=== PATIENT | male | born 1955 | race Caucasian/White ===

== ENCOUNTER 2021-01-16 09:11 | Inpatient (IN) | payer SELFPAY ==
[~2021-01-16] VITALS: Ht 185.4 cm; Wt 76.7 kg
[2021-01-16 09:12] VITALS: BP 109/76
[2021-01-16] MEDS ORDERED: CLINDAMYCIN IVPB 600MG/50ML 50 ML IV SCH (12:30)
[2021-01-16] MEDS ORDERED: ONDANSETRON 4MG INJ IVP SCH (12:30)
[2021-01-16] MEDS ORDERED: ONDANSETRON 4MG INJ IVP ONE (12:30)
[2021-01-16] MEDS ORDERED: MORPHINE 5 MG/ML VIAL (5MG OR GREATER DOSE) IV SCH (12:30)
[2021-01-16 13:01] LABS: BASOPHILS % (AUTO) 0.4 % (0.0-5.0); EOSINOPHILS % (AUTO) 0.2 % (0.0-8.0); HEMATOCRIT 33.8 % (42-54); LYMPHOCYTES % (AUTO) 19.1 % (21.0-51.0); MEAN CORPUSCULAR HEMOGLOBIN 23.8 pg (27.0-33.0); MEAN CORPUSCULAR HGB CONC 30.8 g/dL (32.0-36.0); MEAN CORPUSCULAR VOLUME 77.3 fL (79-99); MONOCYTES % (AUTO) 6.6 % (3.0-13.0); NEUTROPHILS % (AUTO) 73.4 % (40.0-77.0); PLATELET COUNT (AUTO) 380 K/uL (130-400); RED BLOOD CELL COUNT(AUTO) 4.37 MIL/uL (4.50-6.20); RED CELL DISTRIBUTION WIDTH 17.4 % (11.0-15.5); WHITE BLOOD COUNT (AUTO) 12.5 K/uL (4.8-10.8)
[2021-01-16 13:07] LABS: POTASSIUM 3.4 mmol/L (3.5-5.1)
[2021-01-16 13:08] VITALS: BP 115/65
[2021-01-16 13:12] LABS: ALBUMIN 2.1 g/dL (3.5-5.0); BILIRUBIN,TOTAL 0.4 mg/dL (0.2-1.0); CRP QUANTITATIVE 81.6 mg/L (0.00-9.0); TOTAL PROTEIN, SERUM 9.7 g/dL (6.0-8.3)
[2021-01-16 14:49] VITALS: BP 116/68
[2021-01-16] MEDS ORDERED: VANCOMYCIN PROTOCOL PER PHARMACY IV SCH (15:00)
[2021-01-16] MEDS ORDERED: ACETAMINOPHEN 325 MG TAB PO PRN (15:00)
[2021-01-16] MEDS ORDERED: POTASSIUM CHLORIDE 10% ELIXIR 20 MEQ/15 ML UDCUP PO PRN (15:30)
[2021-01-16] MEDS ORDERED: POTASSIUM CHLORIDE 20MEQ/100ML 100 ML IV PRN (15:30)
[2021-01-16] MEDS ORDERED: LIDOCAINE HCL-MPF 1% 2ML VIAL IV PRN (15:30)
[2021-01-16 15:53] LABS: HEMOGLOBIN A1C 5.2 % (4.0-6.0)
[2021-01-16] MEDS: 0.9%NACL 1000ML 1,000 ML IV SCH (15:55)
[2021-01-16] MEDS ORDERED: VANCOMYCIN 1.5GM/NS 250ML IV ONE ×2 (16:00)
[2021-01-16 16:10] LABS: TROPONIN I 0.09 ng/mL (0.00-0.06)
[2021-01-16 16:21] VITALS: BP 127/64
[2021-01-16] MEDS ORDERED: RENAL DOSE IV SCH ×2 (20:00)
[2021-01-16 20:30] VITALS: BP 132/69
[2021-01-16] MEDS ORDERED: ZOSYN 3.375GM+NS 50ML 50 ML IV SCH (21:00)
[2021-01-16] MEDS: FAMOTIDINE 20MG TAB PO SCH (21:24)
[2021-01-16] MEDS: ZOSYN 3.375GM +NS 50ML IV SCH (21:24)
[2021-01-16] MEDS: 0.9%NACL 50ML 50 ML IV SCH (21:24)
[2021-01-17] VITALS (31 sets, daily range): BP systolic 105–145; BP diastolic 53–74
[2021-01-17 00:17] LABS: TROPONIN I 0.09 ng/mL (0.00-0.06)
[2021-01-17] MEDS: 0.9% NACL 250ML 250 ML IV SCH ×3 (01:16→21:48)
[2021-01-17] MEDS: VANCOMYCIN 750MG VIAL IVPB SCH ×3 (01:16→21:47)
[2021-01-17] MEDS: ACETAMINOPHEN WITH CODEINE 1 TAB TAB PO PRN (02:12)
[2021-01-17] MEDS: 0.9%NACL 1000ML 1,000 ML IV SCH ×3 (04:20→18:29)
[2021-01-17] MEDS: 0.9%NACL 50ML 50 ML IV SCH ×3 (04:46→21:47)
[2021-01-17] MEDS: ZOSYN 3.375GM +NS 50ML IV SCH ×3 (04:46→21:48)
[2021-01-17 05:03] LABS: BASOPHILS % (AUTO) 0.3 % (0.0-5.0); EOSINOPHILS % (AUTO) 0.4 % (0.0-8.0); HEMATOCRIT 30.6 % (42-54); LYMPHOCYTES % (AUTO) 16.2 % (21.0-51.0); MEAN CORPUSCULAR HEMOGLOBIN 23.4 pg (27.0-33.0); MEAN CORPUSCULAR HGB CONC 30.1 g/dL (32.0-36.0); MEAN CORPUSCULAR VOLUME 77.9 fL (79-99); MONOCYTES % (AUTO) 6.4 % (3.0-13.0); NEUTROPHILS % (AUTO) 76.3 % (40.0-77.0); PLATELET COUNT (AUTO) 340 K/uL (130-400); RED BLOOD CELL COUNT(AUTO) 3.93 MIL/uL (4.50-6.20); RED CELL DISTRIBUTION WIDTH 17.4 % (11.0-15.5); WHITE BLOOD COUNT (AUTO) 13.3 K/uL (4.8-10.8)
[2021-01-17 05:13] LABS: ALBUMIN 1.7 g/dL (3.5-5.0); BILIRUBIN,TOTAL 0.2 mg/dL (0.2-1.0); POTASSIUM 3.6 mmol/L (3.5-5.1); TOTAL PROTEIN, SERUM 8.1 g/dL (6.0-8.3)
[2021-01-17 05:23] LABS: CRP QUANTITATIVE 116.4 mg/L (0.00-9.0)
[2021-01-17] MEDS ORDERED: OMEP40CA21 PO (07:52)
[2021-01-17] MEDS ORDERED: LEVO50CA4 PO (07:52)
[2021-01-17] MEDS ORDERED: GLIM2TAB30 PO (07:52)
[2021-01-17] MEDS: FAMOTIDINE 20MG TAB PO SCH ×2 (09:14→21:46)
[2021-01-17] MEDS: FLUCONAZOLE 200 MG/NS 100 ML 100 ML IV SCH (11:24)
[2021-01-17] MEDS ORDERED: LIDOCAINE PF 100MG/5ML (2%) SYRINGE 5ML ONE (17:15)
[2021-01-17] MEDS ORDERED: DEXAMETHASONE SOD PHOSPHATE 10MG/ML 1ML VIAL ONE (17:15)
[2021-01-17] MEDS ORDERED: MIDAZOLAM HCL 1 MG/ML 2ML VIAL ONE (17:16)
[2021-01-17] MEDS ORDERED: FENTANYL CITRATE PF 50 MCG/1 ML 2ML VIAL ONE ×3 (17:16→17:50)
[2021-01-17] MEDS ORDERED: ONDANSETRON 4MG INJ ONE (17:16)
[2021-01-17] MEDS ORDERED: PROPOFOL 10 MG/ML 20ML VIAL IV ONE (17:16)
[2021-01-17] MEDS ORDERED: SUCCINYLCHOLINE CHLORIDE 20 MG/ML 10 ML VIAL ONE (17:19)
[2021-01-17] MEDS ORDERED: MEPERIDINE-PF 25 MG/ML SYG ONE ×2 (17:19→19:01)
[2021-01-17] MEDS ORDERED: CEFAZOLIN SODIUM 1 GM VIAL ONE (17:58)
[2021-01-17] MEDS: KCL 20 MEQ ERTAB PO PRN (21:47)
[2021-01-18] MEDS: KCL 20 MEQ ERTAB PO PRN (00:09)
[2021-01-18] MEDS: 0.9% NACL 250ML 250 ML IV SCH ×4 (00:09→23:27)
[2021-01-18] MEDS: VANCOMYCIN 750MG VIAL IVPB SCH ×4 (00:10→23:28)
[2021-01-18] MEDS: ZOSYN 3.375GM +NS 50ML IV SCH ×3 (03:48→19:39)
[2021-01-18] MEDS: 0.9%NACL 50ML 50 ML IV SCH ×3 (03:48→19:39)
[2021-01-18 04:12] VITALS: BP 119/73
[2021-01-18 05:30] LABS: BASOPHILS % (AUTO) 0.1 % (0.0-5.0); HEMATOCRIT 29.4 % (42-54); LYMPHOCYTES % (AUTO) 5.9 % (21.0-51.0); MEAN CORPUSCULAR HEMOGLOBIN 23.8 pg (27.0-33.0); MEAN CORPUSCULAR HGB CONC 30.3 g/dL (32.0-36.0); MEAN CORPUSCULAR VOLUME 78.6 fL (79-99); MONOCYTES % (AUTO) 0.5 % (3.0-13.0); PLATELET COUNT (AUTO) 306 K/uL (130-400); RED BLOOD CELL COUNT(AUTO) 3.74 MIL/uL (4.50-6.20); RED CELL DISTRIBUTION WIDTH 17.5 % (11.0-15.5); WHITE BLOOD COUNT (AUTO) 18.9 K/uL (4.8-10.8)
[2021-01-18] MEDS: 0.9%NACL 1000ML 1,000 ML IV SCH ×2 (05:49→20:20)
[2021-01-18 05:55] LABS: POTASSIUM 4.1 mmol/L (3.5-5.1)
[2021-01-18 08:00] VITALS: BP 108/69
[2021-01-18] MEDS: FAMOTIDINE 20MG TAB PO SCH ×2 (09:11→19:54)
[2021-01-18] MEDS: FLUCONAZOLE 200 MG/NS 100 ML 100 ML IV SCH (09:11)
[2021-01-18] MEDS: ACETAMINOPHEN WITH CODEINE 1 TAB TAB PO PRN ×2 (09:43→21:57)
[2021-01-18 11:34] VITALS: BP 121/67
[2021-01-18] MEDS: BUPROPION HCL 150 MG TABLET.SA PO SCH ×3 (11:57→19:40)
[2021-01-18] MEDS: NICOTINE 14 MG/ 24 HR PATCH TD SCH (11:57)
[2021-01-18 16:00] VITALS: BP 110/62
[2021-01-18 19:41] VITALS: BP 118/67
[2021-01-18 23:35] VITALS: BP 120/65
[2021-01-19] MEDS: 0.9%NACL 50ML 50 ML IV SCH ×2 (03:28→12:23)
[2021-01-19] MEDS: ZOSYN 3.375GM +NS 50ML IV SCH ×2 (03:28→12:23)
[2021-01-19 04:15] VITALS: BP 112/64
[2021-01-19] MEDS: ACETAMINOPHEN WITH CODEINE 1 TAB TAB PO PRN ×3 (04:45→18:59)
[2021-01-19 08:12] VITALS: BP 123/64
[2021-01-19] MEDS: FLUCONAZOLE 200 MG/NS 100 ML 100 ML IV SCH (08:58)
[2021-01-19] MEDS: BUPROPION HCL 150 MG TABLET.SA PO SCH ×3 (08:59→20:34)
[2021-01-19] MEDS: FAMOTIDINE 20MG TAB PO SCH ×2 (08:59→20:34)
[2021-01-19] MEDS: NICOTINE 14 MG/ 24 HR PATCH TD SCH (08:59)
[2021-01-19] MEDS: 0.9% NACL 250ML 250 ML IV SCH (09:11)
[2021-01-19] MEDS: VANCOMYCIN 750MG VIAL IVPB SCH (09:14)
[2021-01-19] MEDS: 0.9%NACL 1000ML 1,000 ML IV SCH ×2 (09:14→20:34)
[2021-01-19 10:52] VITALS: BP 126/66
[2021-01-19] MEDS: OXYCODONE/ACETAMIN 5/325MG TAB PO PRN ×2 (11:26→23:00)
[2021-01-19] MEDS: CEFUROXIME AXETIL 250 MG TABLET PO SCH (13:47)
[2021-01-19] MEDS: CLINDAMYCIN 150 MG CAP PO SCH ×2 (13:47→20:34)
[2021-01-19 16:29] VITALS: BP 140/77
[2021-01-19 20:00] VITALS: BP 147/77
[2021-01-20] VITALS: BP 135/61
[2021-01-20] MEDS: CEFUROXIME AXETIL 250 MG TABLET PO SCH ×2 (01:38→14:29)
[2021-01-20 04:00] VITALS: BP_SYST 112; BP_SYST 124; BP_DIAS 48; BP_DIAS 65
[2021-01-20] MEDS: CLINDAMYCIN 150 MG CAP PO SCH ×3 (06:52→20:50)
[2021-01-20] MEDS: OXYCODONE/ACETAMIN 5/325MG TAB PO PRN (06:57)
[2021-01-20 07:26] LABS: CREATININE 1.1 mg/dL (0.5-1.5); POTASSIUM 3.5 mmol/L (3.5-5.1)
[2021-01-20 07:36] VITALS: BP 131/66
[2021-01-20 07:43] LABS: BASOPHILS % (AUTO) 0.4 % (0.0-5.0); HEMATOCRIT 23.8 % (42-54); LYMPHOCYTES % (AUTO) 38.5 % (21.0-51.0); MEAN CORPUSCULAR HGB CONC 29.4 g/dL (32.0-36.0); MONOCYTES % (AUTO) 7.9 % (3.0-13.0); NEUTROPHILS % (AUTO) 51.9 % (40.0-77.0); PLATELET COUNT (AUTO) 254 K/uL (130-400); RED BLOOD CELL COUNT(AUTO) 3.05 MIL/uL (4.50-6.20); RED CELL DISTRIBUTION WIDTH 17.5 % (11.0-15.5); WHITE BLOOD COUNT (AUTO) 6.7 K/uL (4.8-10.8)
[2021-01-20] MEDS: BUPROPION HCL 150 MG TABLET.SA PO SCH ×3 (09:00→20:53)
[2021-01-20] MEDS: FAMOTIDINE 20MG TAB PO SCH ×2 (10:23→20:50)
[2021-01-20] MEDS: NICOTINE 14 MG/ 24 HR PATCH TD SCH (10:24)
[2021-01-20 12:00] VITALS: BP_SYST 118; BP_SYST 134; BP_DIAS 61; BP_DIAS 79
[2021-01-20] MEDS: 0.9%NACL 1000ML 1,000 ML IV SCH (12:20)
[2021-01-20 16:00] VITALS: BP 127/63
[2021-01-20 20:00] VITALS: BP 122/53
[2021-01-20] MEDS: ACETAMINOPHEN WITH CODEINE 1 TAB TAB PO PRN (20:11)
[2021-01-21] VITALS: BP 134/72
[2021-01-21] MEDS: CEFUROXIME AXETIL 250 MG TABLET PO SCH ×2 (00:39→12:41)
[2021-01-21] MEDS: 0.9%NACL 1000ML 1,000 ML IV SCH ×2 (00:52→14:35)
[2021-01-21 04:00] VITALS: BP 124/65
[2021-01-21] MEDS: CLINDAMYCIN 150 MG CAP PO SCH ×3 (04:33→20:35)
[2021-01-21 07:16] VITALS: BP 155/71
[2021-01-21] MEDS: BUPROPION HCL 150 MG TABLET.SA PO SCH ×2 (08:24→20:35)
[2021-01-21] MEDS: NICOTINE 14 MG/ 24 HR PATCH TD SCH (10:35)
[2021-01-21] MEDS: FAMOTIDINE 20MG TAB PO SCH ×2 (10:35→20:35)
[2021-01-21 10:47] VITALS: BP 130/73
[2021-01-21 10:52] LABS: HEMATOCRIT 26.3 % (42-54); MEAN CORPUSCULAR HEMOGLOBIN 23.8 pg (27.0-33.0); MEAN CORPUSCULAR HGB CONC 30.4 g/dL (32.0-36.0); MEAN CORPUSCULAR VOLUME 78.3 fL (79-99); RED BLOOD CELL COUNT(AUTO) 3.36 MIL/uL (4.50-6.20); RED CELL DISTRIBUTION WIDTH 17.3 % (11.0-15.5); WHITE BLOOD COUNT (AUTO) 7.1 K/uL (4.8-10.8)
[2021-01-21] MEDS: OXYCODONE/ACETAMIN 5/325MG TAB PO PRN (11:28)
[2021-01-21] MEDS ORDERED: LIDOCAINE/PRILOCAINE CREAM 30 GM TUBE TP SCH (14:00)
[2021-01-21 15:55] VITALS: BP 138/69
[2021-01-21] MEDS: ACETAMINOPHEN WITH CODEINE 1 TAB TAB PO PRN (18:13)
[2021-01-21 20:00] VITALS: BP 140/64
[2021-01-22] VITALS: BP 140/65
[2021-01-22] MEDS: 0.9%NACL 1000ML 1,000 ML IV SCH (00:20)
[2021-01-22] MEDS: CEFUROXIME AXETIL 250 MG TABLET PO SCH ×2 (00:20→13:09)
[2021-01-22] MEDS: ACETAMINOPHEN WITH CODEINE 1 TAB TAB PO PRN (00:32)
[2021-01-22 04:08] VITALS: BP 126/65
[2021-01-22] MEDS: CLINDAMYCIN 150 MG CAP PO SCH ×2 (04:31→13:13)
[2021-01-22 07:30] VITALS: BP 116/63
[2021-01-22] MEDS: BUPROPION HCL 150 MG TABLET.SA PO SCH (09:00)
[2021-01-22 11:00] VITALS: BP 148/71
[2021-01-22] MEDS: NICOTINE 14 MG/ 24 HR PATCH TD SCH (11:40)
[2021-01-22] MEDS: FAMOTIDINE 20MG TAB PO SCH (11:40)
[2021-01-22] MEDS: OXYCODONE/ACETAMIN 5/325MG TAB PO PRN (13:08)
[2021-01-22] MEDS ORDERED: LIDOCAINE/PRILOCAINE CREAM 5GM TUBE TP SCH (14:00)
[2021-01-22 16:00] VITALS: BP 139/75
[2021-01-22] MEDS ORDERED: Cefuroxime Axetil PO (16:42)
[2021-01-22] MEDS ORDERED: TYL3B PO (16:42)
[2021-01-22] MEDS ORDERED: CLIN-26 PO (16:42)
[2021-01-22 21:25] VITALS: BP 136/70
== END 2021-01-22 22:10 | disposition left against medical advice (07) | DRG 581 ==
LOC: EDH 09:11 → EDHIP 09:12 → 3BH 19:57
PROVIDERS: ADMIT Internal Medicine; ATTEND Internal Medicine
PROC: 0J990ZZ Drainage of Buttock Subcutaneous Tissue and Fascia, Open Approach (ICD-10-PCS; principal; 2021-01-17 10:15)
DX: L02.31 Cutaneous abscess of buttock (principal); L03.317 Cellulitis of buttock; D72.829 Elevated white blood cell count, unspecified; D50.9 Iron deficiency anemia, unspecified; L73.2 Hidradenitis suppurativa; E87.6 Hypokalemia; F17.210 Nicotine dependence, cigarettes, uncomplicated; I10 Essential (primary) hypertension; N49.2 Inflammatory disorders of scrotum; Z74.01 Bed confinement status; Z83.3 Family history of diabetes mellitus
CPT/HCPCS: 36415; 71045; 76870; 80048; 80053; 80061; 80202; 82550; 82607; 82728; 82746; 83036; 83540; 83550; 83605; 83874; 84145; 84484; 85025; 85027; 85651; 86140; 86850; 86900; 86901; 87040; 87070; 87076; 87205; 93005; A6266; G0378; J0330; J0690; J1100; J1450; J2001; J2175; J2250; J2270; J2405; J2543; J2704; J3010; J3370; J3490; J7030; J7050

== ENCOUNTER → 2021-07-06 | Outpatient (CLI) | payer OTHER ==
[~2021-07-06] MED LIST: CLIN-26 PO; Cefuroxime Axetil PO; GADOTERATE MEGLUMINE 10 MMOL/20 ML VIAL IV ONE; GLIM2TAB30 PO; LEVO50CA4 PO; OMEP40CA21 PO; TYL3B PO
== END | disposition home or self-care (01) ==
LOC: RAH 07:55
PROVIDERS: ATTEND Dermatology
DX: L02.91 Cutaneous abscess, unspecified (principal); R60.9 Edema, unspecified
CPT/HCPCS: 72197; A9575

== ENCOUNTER 2024-08-17 10:37 | Emergency (ER) | payer OTHER ==
[~2024-08-17] VITALS: Ht 167.6 cm; Wt 81.6 kg
[~2024-08-17 10:37] MED LIST changes: -GADOTERATE MEGLUMINE 10 MMOL/20 ML VIAL IV ONE
[2024-08-17 11:13] LABS: BASOPHILS # (AUTO) 0.02 K/uL (0.00-0.20); BASOPHILS % (AUTO) 0.4 % (0.0-5.0); EOSINOPHILS # (AUTO) 0.04 K/uL (0.00-0.70); EOSINOPHILS % (AUTO) 0.9 % (0.0-8.0); HEMATOCRIT 50.3 % (42-54); LYMPHOCYTES # (AUTO) 1.7 K/uL (1.0-4.8); LYMPHOCYTES % (AUTO) 36.1 % (21.0-51.0); MEAN CORPUSCULAR HEMOGLOBIN 27.1 pg (27.0-33.0); MEAN CORPUSCULAR HGB CONC 31.6 g/dL (32.0-36.0); MEAN CORPUSCULAR VOLUME 85.7 fL (79-99); MONOCYTES # (AUTO) 0.5 K/uL (0.1-1.0); NEUTROPHILS # (AUTO) 2.5 K/uL (1.8-7.7); NEUTROPHILS % (AUTO) 52.6 % (40.0-77.0); PLATELET COUNT (AUTO) 154 K/uL (130-400); RED BLOOD CELL COUNT(AUTO) 5.87 MIL/uL (4.50-6.20); RED CELL DISTRIBUTION WIDTH 15.8 % (11.0-15.5); WHITE BLOOD COUNT (AUTO) 4.7 K/uL (4.8-10.8)
--- NOTE | 2024-08-17 11:15 | NUR ---
TRANSFERRED FROM [facility] TO [facility].
[2024-08-17 11:36] LABS: B-TYPE NATRIURETIC PEPTIDE 27 pg/mL (0-100)
[2024-08-17 11:48] LABS: POTASSIUM 4.3 mmol/L (3.5-5.1)
--- NOTE | 2024-08-17 11:52 | EKG ---
[facility] Test Date: 2024-08-17 Test Time: 10:07:10 Pat Name: ISIS MTZ Department: ED Room: Gender: Assistant Art Director: [id number] : 1955 Requested By: JAZMÍN MILLARD Order Number: [id number] Reading MD: Cassius Messer Measurements Intervals [place] Rate: 48 P: 51 AR: 161 QRS: 16 QRSD: 87 T: 42 QT: 493 QTc: 442 Interpretive Statements Sinus bradycardia Compared to ECG 01/16/2021 14:40:06 Sinus rhythm no longer present Left ventricular hypertrophy no longer present ST (T wave) deviation no longer present Myocardial infarct finding no longer present Electronically Signed On 08-18-2024 11:52:29 EVENT SALES REPRESENTATIVE by Cassius Messer Please click the below link to view image of tracing.
[2024-08-17 12:17] LABS: APPEARANCE,URINE CLEAR (CLEAR); BILIRUBIN,URINE NEGATIVE (NEGATIVE); COLOR,URINE LIGHT-YELLOW (YELLOW); GLUCOSE, URINE (UA) 30 mg/dL (NEGATIVE); KETONES,URINE NEGATIVE (NEGATIVE); LEUKOCYTE ESTERASE ,URINE 250 Leu/uL (NEGATIVE); NITRATE,URINE NEGATIVE (NEGATIVE); OCCULT BLOOD,URINE NEGATIVE (NEGATIVE); PROTEIN,URINE 30 mg/dL (NEGATIVE); UROBILINOGEN,URINE 0.2 mg/dL (0.2-1.0)
--- NOTE | 2024-08-17 12:19 | HMCIMG ---
CHEST 1VW REASON: CHEST PAIN COMPARISON: 01/16/2021 FINDINGS: Single view of the chest was obtained. Lungs are clear. Heart size is normal. There is no pulmonary vascular congestion. Mediastinum and bony thorax appear unremarkable. IMPRESSION: 1. Normal single view chest x-ray.
[2024-08-17 12:22] LABS: ADD UA MICROSCOPIC YES
[2024-08-17 12:44] LABS: BACTERIA,URINE RARE /HPF (None Seen); MUCUS,URINE RARE LPF (None Seen); SQUAMOUS EPITHELIAL CELL,UR RARE /HPF (0-2)
--- NOTE | 2024-08-17 13:14 | ERN ---
ED Note History of Present Illness Stated Complaint: CP Chief Complaint: Chest Pain Time Seen by MD: 10:45 Dictation: 69-year-old male presents to the ED via EMS for evaluation of chest pain onset 6:00 a.m.. Patient reports arm pain, but denies any shortness a breath or any other associated symptoms at this time. As per patient, he was given a nitro tablet on route by EMS and states that he is now able to use his arm again. Patient reports his heart rate usually runs in the high 70s. PCP- Dr. Melendez. Allergies: Coded Allergies: No Known Drug Allergies (Verified Allergy, Unknown, 07/31/18) Home Meds Active Scripts Cephalexin Monohydrate (Keflex) 500 Mg Cap, 1 CAP PO BID for 7 Days, #14 CAP 0 Refills Prov:JAZMÍN MILLARD MD 08/17/24 Acetaminophen with Codeine (Acetaminophen with Codeine #3 Tablet) 1 Tab Tab, 1 TAB PO Q4H PRN for PAIN LEVEL 4 TO 6 for 7 Days, #30 TAB 0 Refills Prov:AUGUSTUS MONSIVAIS 01/22/21 [Cefuroxime Axetil] 250 MG TABLET No Conflict Check, 500 MG PO Q12H for 14 Days, #28 TAB 0 Refills Prov:AUGUSTUS MONSIVAIS 01/22/21 Clindamycin HCl (Cleocin) 150 Mg Cap, 300 MG PO Q8H for 14 Days, #42 CAP Prov:AUGUSTUS MONSIVAIS 01/22/21 Reported Medications Omeprazole (Omeprazole) 40 Mg Capsule.dr 40 MG PO DAILY, CAP 01/17/21 Glimepiride (Glimepiride) 2 Mg Tablet, 2 MG PO DAILY, TAB 01/17/21 Levothyroxine Sodium (Levothyroxine) 50 Mcg Capsule, 50 MCG PO DAILY, CAP 01/17/21 Past Medical History Past Medical History: Other Additional Past Medical Hx: HIDRADENITIS SUPPURATIVA Surgical History: Other Surgical History Other: R BUTTOCK SX Review of System Dictation Constitutional: Negative for fever,chills, and weight loss Eyes: Negative for injury, pain,redness, and discharge ENT: Negative for injury,pain or swelling Cardiovascular: Positive for chest pain negative for palpitations, and edema Respiratory: Negative for shortness of breath, cough, and wheezing, Abdomen/GI: Negative for abdominal pain, nausea, vomiting, diarrhea, and constipation Back: Negative for injury and pain : Negative for injury, bleeding and discharge MS/Extremity: Negative for injury and deformity Skin: Negative for rash, and discoloration Neuro: Negative for headache, weakness, numbness, tingling, and seizure Psych: Negative for suicide ideation, homicidal ideation, and hallucinations Initial Vital Sign VS Vital Signs Date Time Temp Pulse Resp B/P (MAP) Pulse Ox O2 Delivery O2 Flow Rate FiO2 08/17/24 11:40 97.9 47 16 143/72 100 Room Air* 0 21 Physical Exam Dictation General: awake, alert, NAD Head/Face: Normocephalic, atraumatic Eyes: PERRL, EOMI, vision at baseline ENT: oral cavity clear, TMs clear, no signs of infection Neck: Trachea midline, supple, no nuchal rigidity Cardiovascular: Bradycardic, No MRGs, no JVD Respiratory: CTAB, no respiratory distress, No rales or wheezes Abdomen: Soft, non-tender, non-distended, normal bowel sounds, no guarding or rebound. Skin: Warm, dry, normal turgor, no rash MS/Extremity: Pulses equal, no cyanosis, neurovascular intact, FROM Neuro: COAx4, GCS 15, strength 5/5, CN 2-12 intact, normal cerebellar exam, normal gait, Psych: Normal behavior, mood, and affect normal Results (Laboratory/Radiology) Laboratory/Radiology Laboratory Tests Test 08/17/24 10:50 08/17/24 11:27 08/17/24 11:48 08/17/24 14:37 White Blood Count 4.7 K/uL (4.8-10.8) L Red Blood Count 5.87 MIL/uL (4.50-6.20) Hemoglobin 15.9 g/dL (14.0-18.0) Hematocrit 50.3 % (42-54) Mean Corpuscular Volume 85.7 fL (79-99) Mean Corpuscular Hemoglobin 27.1 pg (27.0-33.0) Mean Corpuscular Hemoglobin Concent 31.6 g/dL (32.0-36.0) L Red Cell Distribution Width 15.8 % (11.0-15.5) H Platelet Count 154 K/uL (130-400) Mean Platelet Volume 9.7 fL (7.5-10.5) Immature Granulocyte % (Auto) 0.0 % (0-1) Neutrophils (%) (Auto) 52.6 % (40.0-77.0) Lymphocytes (%) (Auto) 36.1 % (21.0-51.0) Monocytes (%) (Auto) 10.0 % (3.0-13.0) Eosinophils (%) (Auto) 0.9 % (0.0-8.0) Basophils (%) (Auto) 0.4 % (0.0-5.0) Neutrophils # (Auto) 2.5 K/uL (1.8-7.7) Lymphocytes # (Auto) 1.7 K/uL (1.0-4.8) Monocytes # (Auto) 0.5 K/uL (0.1-1.0) Eosinophils # (Auto) 0.04 K/uL (0.00-0.70) Basophils # (Auto) 0.02 K/uL (0.00-0.20) Absolute Immature Granulocyte (auto 0.00 K/uL (0-1) Nucleated Red Blood Cells 0.0 % (0.0-0.19) Sodium Level 134 mmol/L (136-145) L Potassium Level 4.3 mmol/L (3.5-5.1) Chloride Level 102 mmol/L (101-111) Carbon Dioxide Level 27 mmol/L (21-32) Blood Urea Nitrogen 7 mg/dL (7-18) Creatinine 1.0 mg/dL (0.5-1.3) Glomerular Filtration Rate Calc 82 mL/min (>90) Random Glucose 108 mg/dL (70-105) H Total Calcium 8.5 mg/dL (8.5-10.1) Total Creatine Kinase 129 U/L (21-232) # Troponin I High Sensitivity 17 ng/L (4-75) 18 ng/L (4-75) B-Type Natriuretic Peptide 27 pg/mL (0-100) Troponin I < 0.05 ng/mL (0.00-0.05) Urine Color LIGHT-YELLOW (YELLOW) Urine Appearance CLEAR (CLEAR) Urine pH 7.0 (5.0-8.0) Urine Specific [place] 1.007 (1.001-1.031) Urine Protein 30 mg/dL (NEGATIVE) H Urine Glucose (UA) 30 mg/dL (NEGATIVE) H Urine Ketones NEGATIVE mg/dL (NEGATIVE) Urine Occult Blood NEGATIVE (NEGATIVE) Urine Nitrate NEGATIVE (NEGATIVE) Urine Bilirubin NEGATIVE mg/dL (NEGATIVE) Urine Urobilinogen 0.2 mg/dL (0.2-1.0) Urine Leukocyte Esterase 250 Johana/uL (NEGATIVE) H Urine RBC 2-5 /HPF (0-1) H Urine WBC 11-25 /HPF (0-1) H Urine Squamous Epithelial Cells RARE /HPF (0-2) Urine Bacteria RARE /HPF (None Seen) Labs Reviewed?: Yes EKG Comment: EKG 08/17/2024 time 10:07 a.m. ventricular rate 48, CO 161, QRS D 87, QT 493. Sinus bradycardia. No STEMI X-RAY Comment: REASON: CHEST PAIN ORDERING PHYSICIAN: JAZMÍN MILLARD MD PROCEDURE: CXR1VW - CHEST 1VW CHEST 1VW REASON: CHEST PAIN COMPARISON: 01/16/2021 FINDINGS: Single view of the chest was obtained. Lungs are clear. Heart size is normal. There is no pulmonary vascular congestion. Mediastinum and bony thorax appear unremarkable. IMPRESSION: 1. Normal single view chest x-ray. DICTATED BY: ISIS PHOENIX MD DATE: 08/17/24 1216 ED Course ED Course Orders Procedure Category Date Status Time Vital Signs Per CPOE 08/17/24 Transmitted Routine 10:43 B-Type Natriuretic LAB 08/17/24 Complete Peptide 10:43 Chest 1vw RAD 08/17/24 Resulted 10:43 12 Lead Ekg Tracing- EKG 08/17/24 Complete Technical 10:43 Oxygen By Nc/Pulse Ox CPOE 08/17/24 Transmitted 10:43 Maintain Iv CPOE 08/17/24 Transmitted 10:43 Iv Insertion CPOE 08/17/24 Transmitted 10:43 Cardiac Monitoring CPOE 08/17/24 Transmitted 10:43 Pulse Oximetry With CPOE 08/17/24 Transmitted Vs And Prn 10:43 Cbc With Differential LAB 08/17/24 Complete 10:43 Activity: Br W/Brp CPOE 08/17/24 Transmitted With Assist 10:43 Creatine Kinase, Total LAB 08/17/24 Complete 10:43 Troponin I High LAB 08/17/24 Complete Sensitivity 10:43 Urinalysis Profile LAB 08/17/24 Complete 10:43 Troponin Poc Order LAB 08/17/24 Complete Only 10:43 Bedside Troponin-I LAB.ER 08/17/24 In Process (Poc) 10:43 Basic Metabolic Panel LAB 08/17/24 Complete 10:43 Culture Urine MILAN 08/17/24 In Process 12:22 Troponin I High LAB 08/17/24 Complete Sensitivity 14:07 Vital Signs Date Time Temp Pulse Resp B/P (MAP) Pulse Ox O2 Delivery O2 Flow Rate FiO2 08/17/24 15:37 97.9 51 16 150/78 100 Room Air* 0 21 08/17/24 13:41 97.5 47 16 139/77 98 Room Air* 0 21 08/17/24 12:00 97.9 46 15 152/77 97 Room Air 0 08/17/24 11:40 97.9 47 16 143/72 100 Room Air* 0 21 HEART Score Response (Comments) Value History: Low suspicion (0) 0 EKG: Normal 0 Age: > 65yrs (+2) 2 Risk Factors: No known risk factors (0) 0 Initial Troponin: Normal limit (0) 0 HEART Score Risk: Low Risk for MACE (1-3) Total 2 Medical Decision Making MDM MDM: Differential diagnosis: Chest pain, bradycardia Rationale: Tests considered and ordered secondary to shared decision making include: labs, ECG and radiology Risk of complication and/or morbidity or mortality of patient management: None Medications-Per medication reconciliation Need for hospitalization: Patient does not meet criteria for hospitalization. Need for emergency major/minor surgery: No There are no social concerns with this patient. Prescription drug management Prescriptions will include symptomatic care I independently interpreted the test that were performed, results were reviewed by me and considered findings on radiology if ordered. Repeat EKG stable, heart score two, negative cardiac workup, no pain stable for outpatient follow up DX & DISP Disposition: Discharge Departure Impression: Primary Impression: UTI (urinary tract infection) Additional Impressions: Chest pain, Sinus bradycardia Condition: Stable Scripts Cephalexin Monohydrate (Keflex) 500 Mg Cap 1 CAP PO BID for 7 Days, #14 CAP 0 Refills Prov: JAZMÍN MILLARD MD 08/17/24 Referrals: EL ROBISON MD (PCP) JAZMÍN MILLARD MD Aug 17, 2024 13:14
[2024-08-17] MEDS ORDERED: CEPH500B PO (15:06)
[2024-08-17 15:37] VITALS: BP 150/78; PULSE 51; RESP 16; TEMP 97.8; O2SAT 100
--- NOTE | 2024-08-18 07:10 | EKG ---
[facility] Test Date: 2024-08-17 Test Time: 15:09:15 Pat Name: ISIS MTZ Department: ED Room: Gender: Manometer Technician: [id number] : 1955 Requested By: JAZMÍN MILLARD Order Number: [id number] Reading MD: Cassius Messer Measurements Intervals [place] Rate: 47 P: 16 ME: 147 QRS: 30 QRSD: 97 T: 37 QT: 513 QTc: 453 Interpretive Statements Sinus bradycardia Borderline ST elevation, anterior leads Compared to ECG 08/17/2024 10:07:10 ST (T wave) deviation now present Electronically Signed On 08-18-2024 11:53:19 AUTO SERVICE DISPATCHER by Cassius Messer Please click the below link to view image of tracing.
== END 2024-08-17 15:47 | disposition home or self-care (01) ==
LOC: EDH 10:37
DX: N39.0 Urinary tract infection, site not specified (principal); R07.89 Other chest pain; R00.1 Bradycardia, unspecified; Z79.890 Hormone replacement therapy; Z79.899 Other long term (current) drug therapy
CPT/HCPCS: 36415; 71045; 80048; 81001; 82550; 83880; 84484; 85025; 87086; 93005; 99285